=== PATIENT | female | born 1950 | race Caucasian/White ===

== ENCOUNTER 2019-11-14 05:55 | Day surgery (SDC) | payer MEDICARE ==
[2019-11-12 14:37] LABS: BASOPHILS # (AUTO) 0.1 X10'3 (0-0.2); BASOPHILS % (AUTO) 0.5 % (0-1); EOSINOPHILS # (AUTO) 0.2 X10'3 (0-0.9); EOSINOPHILS % (AUTO) 1.3 % (0-6); HEMATOCRIT 36.6 % (35.0-45.0); HEMOGLOBIN 12.5 g/dl (12.0-16.0); LYMPHOCYTES # (AUTO) 1.5 X10'3 (1.1-4.8); LYMPHOCYTES % (AUTO) 10.6 % (21-51); MEAN CORPUSCULAR HEMOGLOBIN 32.2 PG (27.0-31.0); MEAN CORPUSCULAR VOLUME 94.6 FL (78-98); MEAN PLATELET VOLUME 6.7 FL (7.4-10.4); MONOCYTES # (AUTO) 1.5 X10'3 (0-0.9); MONOCYTES % (AUTO) 10.8 % (2-12); NEUTROPHILS # (AUTO) 10.7 X10'3 (1.8-7.7); NEUTROPHILS % (AUTO) 76.8 % (42-75); PLATELET COUNT 436 X10'3 (140-440); RED BLOOD COUNT 3.87 X10'6 (4.20-5.60); RED CELL DISTRIBUTION WIDTH 15.2 % (11.5-14.5)
[2019-11-12 14:47] LABS: PARTIAL THROMBOPLASTIN TIME 30 SECONDS (22-32)
[2019-11-12 14:51] LABS: ALANINE AMINOTRANSFERASE 15 U/L (12-78); ALBUMIN 3.9 G/DL (3.4-5.0); ALBUMIN/GLOBULIN RATIO 1.2 (1.1-1.5); ALKALINE PHOSPHATASE 84 IU/L (46-116); ANION GAP 6 (8-16); ASPARTATE AMINO TRANSFERASE 6 U/L (10-37); BILIRUBIN,TOTAL 0.4 MG/DL (0.1-1.0); BLOOD UREA NITROGEN 18 MG/DL (7-18); BUN/CREATININE RATIO 23.7 (6.6-38.0); CALCIUM 8.9 MG/DL (8.5-10.1); CHLORIDE 100 MMOL/L (99-107); CREATININE 0.76 MG/DL (0.40-0.90); GLUCOSE 143 MG/DL (70-104); POTASSIUM 3.8 MMOL/L (3.5-5.1); SODIUM 136 MMOL/L (135-145); TOTAL CARBON DIOXIDE 29.8 MMOL/L (24-32); TOTAL PROTEIN 7.1 G/DL (6.4-8.2); eGFR 75 ML/MIN
[~2019-11-14] VITALS: Ht 168.9 cm; Wt 83.1 kg
[2019-11-14] VITALS (9 sets, daily range): BP systolic 106–139; BP diastolic 50–69
[2019-11-14] MEDS ORDERED: nitroGLYCERIN 0.4mg SUBLingual tab SL PRN ×2 (06:15→10:10)
[2019-11-14] MEDS ORDERED: LORazepam 0.5 MG tablet PO PRN (06:15)
[2019-11-14] MEDS ORDERED: normal saline 1,000 ML IV SCH (06:15)
[2019-11-14] MEDS ORDERED: diphenhydrAMINE 25mg capsule PO PRN (06:15)
[2019-11-14] MEDS ORDERED: HYDR500C2 PO (06:25)
[2019-11-14] MEDS ORDERED: PROP10TA10 PO (06:25)
[2019-11-14] MEDS ORDERED: ASPI-1265 PO (06:25)
[2019-11-14] MEDS ORDERED: MONT10TA21 PO (06:25)
[2019-11-14] MEDS ORDERED: ALBU8.5H8 INH (06:25)
[2019-11-14] MEDS ORDERED: SERT50TA10 PO (06:25)
[2019-11-14] MEDS ORDERED: HYDR25TA4 PO (06:25)
[2019-11-14] MEDS ORDERED: TIOT18CA3 (06:25)
[2019-11-14] MEDS ORDERED: FLUT1BLS3 (06:25)
[2019-11-14] MEDS ORDERED: LISI-600 PO (06:25)
[2019-11-14] MEDS ORDERED: ALEN70TA60 PO (06:25)
[2019-11-14] MEDS ORDERED: LIDOcaine 1% (10mg/ml)w/preservative injection 20ml MDV ONE (08:37)
[2019-11-14] MEDS ORDERED: heparin 1,000 UNITS/NS 500ml 500 ML ONE ×2 (08:37)
[2019-11-14] MEDS ORDERED: iohexol 350MG/ML 100ml bottle IV ONE (08:37)
[2019-11-14] MEDS ORDERED: fentaNYL/PF 50MCG/1 ML 2ML syringe ONE ×2 (08:37→09:12)
[2019-11-14] MEDS ORDERED: iohexol 350 MG/ML 50ML vial IV ONE ×2 (08:37→09:12)
[2019-11-14] MEDS ORDERED: midazolam 2 mg/2 ml injection ONE (08:37)
[2019-11-14] MEDS ORDERED: HYDROcodone/acetaminophen 10/325mg tab PO PRN (10:10)
[2019-11-14] MEDS ORDERED: OXAZEpam 15mg capsule PO PRN (10:10)
[2019-11-14] MEDS ORDERED: proCHLORperazine 10 MG/2 ml inj IV PRN (10:10)
[2019-11-14] MEDS ORDERED: HYDROcodone/acetaminophen 5mg/325mg tablet PO PRN (10:10)
[2019-11-14] MEDS ORDERED: ondansetron/PF 4mg/2ml inj IV PRN (10:10)
--- NOTE | 2019-11-14 12:12 | NUR ---
Problems reprioritized. Patient report given, questions answered & plan of care reviewed with Paty RN. Patient right groin site cdi, soft, nontender, no hematoma, pulses present on palpation both feet.
== END 2019-11-14 15:50 | disposition home or self-care (01) ==
LOC: SSTAY O 05:55
PROVIDERS: ATTEND Internal Medicine Cardiovascular Disease
DX: I25.10 Atherosclerotic heart disease of native coronary artery without angina pectoris (principal); R94.39 Abnormal result of other cardiovascular function study; I10 Essential (primary) hypertension; J44.9 Chronic obstructive pulmonary disease, unspecified; Z98.890 Other specified postprocedural states; Z79.899 Other long term (current) drug therapy; E78.5 Hyperlipidemia, unspecified; I45.19 Other right bundle-branch block; I73.9 Peripheral vascular disease, unspecified; Z72.0 Tobacco use; I34.0 Nonrheumatic mitral (valve) insufficiency; Z01.812 Encounter for preprocedural laboratory examination
CPT/HCPCS: 36415; 75625; 80053; 85025; 85610; 85730; 93005; 93458; C1769; J1644; J2001; J2250; J3010; J7030; Q0163; Q9967; 99152; 99153; A4620; A6258; C1760

== ENCOUNTER 2022-05-19 11:33 | Outpatient (CLI) | payer MEDICARE ==
[~2022-05-19 11:33] MED LIST: ALBU8.5H17 INH; ALEN70TA60 PO; ASPI-1265 PO; FLUT1BLS3; HYDR25TA4 PO; HYDR500C2 PO; LISI20TA28 PO; MONT10TA21 PO; PROP10TA10 PO; SERT-433 PO; TIOT18CA3
== END 2022-05-19 23:59 | disposition home or self-care (01) ==
LOC: CARD DIAG 11:33
PROVIDERS: ATTEND Internal Medicine Cardiovascular Disease
DX: I34.0 Nonrheumatic mitral (valve) insufficiency (principal)
CPT/HCPCS: 93306

== ENCOUNTER 2022-12-09 06:03 | Day surgery (SDC) | payer MEDICARE ==
[2022-12-08 12:44] LABS: BASOPHILS # (AUTO) 0.1 X10'3 (0-0.2); BASOPHILS % (AUTO) 0.5 % (0-1); EOSINOPHILS # (AUTO) 0.1 X10'3 (0-0.9); EOSINOPHILS % (AUTO) 1.1 % (0-6); HEMATOCRIT 41.1 % (35.0-45.0); HEMOGLOBIN 13.6 g/dl (12.0-16.0); LYMPHOCYTES # (AUTO) 0.8 X10'3 (1.1-4.8); LYMPHOCYTES % (AUTO) 8.3 % (21-51); MEAN CORPUSCULAR HEMOGLOBIN 34.6 PG (27.0-31.0); MEAN CORPUSCULAR HGB CONC 33.1 g/dL (33.0-36.5); MEAN CORPUSCULAR VOLUME 104.5 FL (78-98); MEAN PLATELET VOLUME 6.8 FL (7.4-10.4); MONOCYTES # (AUTO) 1.1 X10'3 (0-0.9); NEUTROPHILS # (AUTO) 7.9 X10'3 (1.8-7.7); NEUTROPHILS % (AUTO) 79.1 % (42-75); PLATELET COUNT 332 X10'3 (140-440); RED BLOOD COUNT 3.93 X10'6 (4.20-5.60); RED CELL DISTRIBUTION WIDTH 15.3 % (11.5-14.5)
[2022-12-08 12:54] LABS: ALBUMIN 4.1 G/DL (3.4-5.0); ANION GAP 7 (8-16); BLOOD UREA NITROGEN 19 MG/DL (7-18); BUN/CREATININE RATIO 24.4 (6.6-38.0); CALCIUM 9.2 MG/DL (8.5-10.1); CHLORIDE 101 MMOL/L (99-107); CREATININE 0.78 MG/DL (0.40-0.90); GLUCOSE 96 MG/DL (70-104); POTASSIUM 4.3 MMOL/L (3.5-5.1); SODIUM 138 MMOL/L (135-145); TOTAL CARBON DIOXIDE 29.7 MMOL/L (24-32); eGFR 73 ML/MIN
[2022-12-08 12:55] LABS: APTT 29 SECONDS (22-32)
[2022-12-09] VITALS (14 sets, daily range): BP systolic 89–130; BP diastolic 30–60
[~2022-12-09] VITALS: Ht 167.6 cm; Wt 77.2 kg
[2022-12-09] MEDS ORDERED: diphenhydrAMINE 25mg capsule PO PRN (06:30)
[2022-12-09] MEDS ORDERED: normal saline 1,000 ML IV SCH (06:30)
[2022-12-09] MEDS ORDERED: LORazepam 0.5 MG tablet PO PRN (06:30)
[2022-12-09] MEDS ORDERED: CARV-50 PO (06:43)
[2022-12-09] MEDS ORDERED: EXEM25TA5 PO (06:45)
[2022-12-09] MEDS ORDERED: ATOR20TA66 PO (06:45)
[2022-12-09] MEDS ORDERED: AMLO5TAB16 PO (06:45)
[2022-12-09] MEDS ORDERED: ALLO100T PO (06:45)
[2022-12-09] MEDS ORDERED: verapamil 2.5 mg/ml inj IV ONE (07:10)
[2022-12-09] MEDS ORDERED: heparin 1,000unit/ml 10ml vial 10 ML ONE (07:11)
[2022-12-09] MEDS ORDERED: midazolam 1 mg/ML 2ml injection ONE (07:11)
[2022-12-09] MEDS ORDERED: fentaNYL/PF 50MCG/1 ML 2ML syringe ONE (07:11)
[2022-12-09] MEDS ORDERED: iohexol 350MG/ML 100ml bottle IV ONE (07:11)
[2022-12-09] MEDS ORDERED: iohexol 350 MG/ML 50ML vial IV ONE ×2 (07:11→08:37)
[2022-12-09] MEDS ORDERED: LIDOcaine 1% (10mg/ml) 2ml vial ONE (07:12)
[2022-12-09] MEDS ORDERED: nitroGLYCERIN-Tridil 50MG/D5W 250 ML IV ONE (07:12)
[2022-12-09] MEDS ORDERED: normal saline 1000ml 1,000 ML IV SCH (09:20)
== END 2022-12-09 15:00 | disposition home or self-care (01) ==
LOC: SSTAY O 06:03
PROVIDERS: ATTEND Internal Medicine Cardiovascular Disease
DX: I25.10 Atherosclerotic heart disease of native coronary artery without angina pectoris (principal); I10 Essential (primary) hypertension; J44.9 Chronic obstructive pulmonary disease, unspecified; E78.5 Hyperlipidemia, unspecified; I67.4 Hypertensive encephalopathy; D47.1 Chronic myeloproliferative disease; F32.9 Major depressive disorder, single episode, unspecified; I73.9 Peripheral vascular disease, unspecified; Z85.3 Personal history of malignant neoplasm of breast; Z98.890 Other specified postprocedural states; Z87.891 Personal history of nicotine dependence; Z79.899 Other long term (current) drug therapy
CPT/HCPCS: 36415; 76937; 80048; 85025; 85610; 85730; 93005; 93458; 99152; 99153; C1769; C1894; J1644; J2250; J3010; J3490; J7030; Q0163; Q9967; A4615; A6258; A6402; C1725

== ENCOUNTER 2023-12-02 08:05 | Day surgery (SDC) | payer MEDICARE ==
[2023-11-25 15:14] LABS: BASOPHILS % (AUTO) 0.3 % (0-1); EOSINOPHILS # (AUTO) 0.1 X10'3 (0-0.9); EOSINOPHILS % (AUTO) 1.2 % (0-6); LYMPHOCYTES # (AUTO) 1.1 X10'3 (1.1-4.8); LYMPHOCYTES % (AUTO) 10.5 % (21-51); MEAN CORPUSCULAR HEMOGLOBIN 35.7 PG (27.0-31.0); MEAN CORPUSCULAR HGB CONC 33.5 g/dL (33.0-36.5); MEAN CORPUSCULAR VOLUME 106.5 FL (78-98); MEAN PLATELET VOLUME 6.7 FL (7.4-10.4); MONOCYTES # (AUTO) 1.7 X10'3 (0-0.9); MONOCYTES % (AUTO) 16.4 % (2-12); NEUTROPHILS # (AUTO) 7.2 X10'3 (1.8-7.7); NEUTROPHILS % (AUTO) 71.6 % (42-75); PRE OP HEMATOCRIT 41.8 % (35.0-45.0); PRE OP PLATELET COUNT 303 X10'3 (140-440); PRE OP WHITE BLOOD COUNT 10.1 10'3 (4.8-10.8); RED BLOOD COUNT 3.93 X10'6 (4.20-5.60); RED CELL DISTRIBUTION WIDTH 14.8 % (11.5-14.5)
[2023-11-25 15:26] LABS: ALBUMIN 3.9 G/DL (3.4-5.0); ALBUMIN/GLOBULIN RATIO 1.2 (1.1-1.5); ALKALINE PHOSPHATASE 85 IU/L (46-116); BLOOD UREA NITROGEN 15 MG/DL (7-18); BUN/CREATININE RATIO 19.7 (10.0-20.0); CHLORIDE 102 MMOL/L (99-107); CREATININE 0.76 MG/DL (0.40-0.90); PRE OP ALT 16 U/L (30-65); PRE OP ANION GAP 8 (8-16); PRE OP AST 12 U/L (10-37); PRE OP BILIRUB, TOTAL 0.7 MG/DL (0.0-1.0); PRE OP GLUCOSE 73 MG/DL (70-104); PRE OP POTASSIUM 4.1 MMOL/L (3.4-5.1); PRE OP SODIUM 138 MMOL/L (135-145); TOTAL CARBON DIOXIDE 27.6 MMOL/L (24-32); TOTAL PROTEIN 7.1 G/DL (6.4-8.2); eGFR 75 ML/MIN
[2023-11-25 15:45] LABS: TOTAL CELLS COUNTED 100
[2023-11-25 15:46] LABS: PLATELET ESTIMATE NORMAL; POLYCHROMASIA FEW
[2023-12-02] VITALS (12 sets, daily range): BP systolic 111–167; BP diastolic 46–73; PULSE 66–93; RESP 13–16; TEMP 98.7; O2SAT 91–96
[~2023-12-02] VITALS: Ht 167.6 cm; Wt 75.7 kg
[~2023-12-02 08:05] MED LIST changes: +ALLO100T PO; +AMLO5TAB16 PO; -ASPI-1265 PO; +ATOR20TA66 PO; +CARV-50 PO; +CELE-148 PO; +DOCUMENT DATE & TIME OF BETA-BLOCKER PO ONE; +ESCI-8 PO; +EXEM25TA5 PO; -FLUT1BLS3; +FLUT1BLS4 INH; -MONT10TA21 PO; -PROP10TA10 PO; -SERT-433 PO; -TIOT18CA3; +TRAZ-251 PO; +albuterol 2.5 MG/3 ML nebule NEB ONE; +famotidine 20mg tablet PO ONE; +ringers solution, lacted 1,000 ML IV SCH
[2023-12-02] MEDS ORDERED: morphine 2 MG/ML inj. syringe IV PRN (09:25)
[2023-12-02] MEDS ORDERED: labetalol 20mg/4ml (5mg/ml) syringe IV PRN (09:25)
[2023-12-02] MEDS ORDERED: morphine 4 MG/ML inj SYRINge IV PRN (09:25)
[2023-12-02] MEDS ORDERED: acetaminophen 1,000mg/100ml IV 100 ML IV ONE (09:25)
[2023-12-02] MEDS ORDERED: HYDROmorphone/PF 0.2 MG/ML SYRINGE IV PRN ×2 (09:25)
[2023-12-02] MEDS ORDERED: ondansetron/PF 4mg/2ml inj IV PRN (09:25)
[2023-12-02] MEDS ORDERED: ringers solution, lacted 1,000 ML IV SCH (09:25)
[2023-12-02] MEDS ORDERED: hydrALAZINE 20mg/ml inj. IV PRN (09:25)
[2023-12-02] MEDS ORDERED: proCHLORperazine 10 MG/2 ml inj IV PRN (09:25)
[2023-12-02] MEDS ORDERED: meperidine/PF 25mg/ml syringe IV PRN (09:25)
[2023-12-02] MEDS ORDERED: albuterol 60 PUFF/8GM Inhaler (90mcg/1 puff) IH ONE (09:38)
[2023-12-02] MEDS ORDERED: sevoflurane 250ml liquid IH ONE (09:38)
[2023-12-02] MEDS ORDERED: fentaNYL/PF 50MCG/1 ML 2ML syringe ONE (09:44)
[2023-12-02] MEDS ORDERED: midazolam 1 mg/ML 2ml injection ONE (09:45)
[2023-12-02] MEDS ORDERED: propofol inj 20 ML IV ONE (09:59)
[2023-12-02] MEDS ORDERED: LIDOcaine 2% (20mg/ml) 5ml vial ONE (09:59)
[2023-12-02] MEDS ORDERED: rocuronium 10mg/ml inj IV ONE (09:59)
[2023-12-02] MEDS ORDERED: neostigmine methylsulfate 1 MG/ML 10ml vial ONE ×2 (09:59→11:19)
[2023-12-02] MEDS ORDERED: dexamethasone sod phosphate 4mg/ml inj. ONE (10:00)
[2023-12-02] MEDS ORDERED: ondansetron/PF 4mg/2ml inj ONE (10:00)
[2023-12-02] MEDS ORDERED: ePHEDrine 50MG/ML INJ. ONE (11:12)
[2023-12-02] MEDS ORDERED: glycopyrrolate 0.2mg/ml inj ONE (11:19)
[2023-12-02] MEDS ORDERED: LIDOcaine Viscous 15ml cup MM PRN (12:50)
== END 2023-12-02 13:10 | disposition home or self-care (01) ==
LOC: PAS 08:05
PROVIDERS: ATTEND Internal Medicine Critical Care Medicine
DX: R91.8 Other nonspecific abnormal finding of lung field (principal); C34.12 Malignant neoplasm of upper lobe, left bronchus or lung; J43.9 Emphysema, unspecified; I25.10 Atherosclerotic heart disease of native coronary artery without angina pectoris; I10 Essential (primary) hypertension; M19.90 Unspecified osteoarthritis, unspecified site; F41.9 Anxiety disorder, unspecified; F32.A Depression, unspecified; E78.5 Hyperlipidemia, unspecified; Z87.891 Personal history of nicotine dependence; Z98.890 Other specified postprocedural states; Z79.899 Other long term (current) drug therapy; Z72.89 Other problems related to lifestyle; Z85.3 Personal history of malignant neoplasm of breast
CPT/HCPCS: 31622; 31624; 31625; 31626; 31627; 31628; 31629; 31653; 31654; 36415; 71045; 71250; 80053; 82948; 85007; 85025; 87070; 87102; 88172; 88173; 88305; 88341; 88342; 93005; 94760; A4615; A4618; J1100; J2250; J2405; J2704; J2710; J3010; J3490; J7120